=== PATIENT | female | born 1955 | race African-American/Black ===

== ENCOUNTER → 2021-08-01 | Day surgery (SDC) | payer MEDICARE, OTHER ==
[~2021-08-01] VITALS: Ht 182.9 cm; Wt 87.1 kg
[~2021-08-01] MED LIST: ATENOLOL50 MG PO; ATORVASTATIN CA10 MG PO; IBUPROFEN800 M1 PO; LEVOTHYROXINE75 MC1 PO; LISINOPRIL10 MG PO; MISOPROSTOL200 MCG VG; OYSTER SHELL 51 EACH PO
[2021-08-01 08:43] LABS: ALBUMIN 3.7 g/dL (3.4-5.0); BILIRUBIN - TOTAL 0.9 mg/dL (0.2-1.0); BUN/CREAT RATIO (CALC) 14.6 RATIO; CREATININE 0.96 mg/dL (0.51-0.95); GLOBULIN (CALCULATION) 3.8 g/dL; POTASSIUM 4.2 mmol/L (3.5-5.1); TOTAL PROTEIN 7.5 g/dL (6.4-8.2)
== END | disposition home or self-care (01) ==
LOC: FAS 07:17
PROVIDERS: Obstetrics & Gynecology
DX: D25.9 Leiomyoma of uterus, unspecified (principal); N84.0 Polyp of corpus uteri; N88.2 Stricture and stenosis of cervix uteri; I10 Essential (primary) hypertension; E78.5 Hyperlipidemia, unspecified; E03.9 Hypothyroidism, unspecified; M19.90 Unspecified osteoarthritis, unspecified site; Z87.891 Personal history of nicotine dependence; Z79.899 Other long term (current) drug therapy
CPT/HCPCS: 36415; 80053; 93005; J1100; J1885; J2250; J2405; J2704; J3010; J7120